=== PATIENT | male | born 1990 | race Caucasian/White ===

== ENCOUNTER 2024-10-01 20:59 | Emergency (ER) | payer OTHER, SELFPAY ==
[2024-10-01 21:00] VITALS: BP 149/69; PULSE 81; RESP 17; TEMP 36.7; O2SAT 98; BMI 36.4
--- NOTE | 2024-10-01 21:28 | ED.RN ---
per housing case manager pt does not need a drug screen.
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
== END 2024-10-01 22:39 | disposition home or self-care (01) ==
PROVIDERS: Emergency Provider Emergency Medicine; Visit Provider Emergency Medicine
DX: Z13.9 Encounter for screening, unspecified (principal); Y92.410 Unspecified street and highway as the place of occurrence of the external cause; V47.5XXA Car driver injured in collision with fixed or stationary object in traffic accident, initial encounter
CPT/HCPCS: 99282

== ENCOUNTER 2024-11-01 04:44 | Emergency (ER) | payer OTHER, SELFPAY ==
[2024-11-01 04:45] VITALS: BP 158/95; PULSE 96; RESP 18; TEMP 36.8; O2SAT 99; BMI 36.3
--- NOTE | 2024-11-01 05:10 | RAD_ITS ---
PROCEDURE: NECK FOR SOFT TISSUE REASON FOR EXAM: PAIN TECHNIQUE: AP and lateral view(s) of the soft tissues of the neck COMPARISON: None. FINDINGS: No evidence of soft tissue swelling or radiopaque foreign body. Prevertebral and epiglottis contours appear normal. RAD/Neck for Soft Tissue IMPRESSION: NEGATIVE SOFT TISSUE NECK Reading Location: [id number]
[2024-11-01] MEDS: Lidocaine 2% Viscous15 ML UDC 15 ML PO (05:30)
[2024-11-01] MEDS: Mag Hydrox/Al Hydrox/Simeth 30 ML UDC PO (05:30)
--- NOTE | 2024-11-01 06:34 | EDS_ITS ---
HPI History of Present Illness Chief Complaint: Foreign Body Informant: patient Narrative Narrative: Patient is a 34-year-old male with no reported significant past medical history. He states that over the last 1 to 2 days he has noticed irritation in the back of his throat. He states he was sleeping and it felt like he was choking on his saliva he also states it feels somewhat difficult to swallow and secondary to this comes in for evaluation [facility] Home Medications ?Medication ?Instructions ?Recorded ?Last Taken ?Type amoxicillin 875 mg tablet 875 mg PO BID 7 days #14 tab s 11/01/24 Unknown Rx prednisone 20 mg tablet 40 mg (2 x 20 mg) PO DAILY 5 days 11/01/24 Unknown Rx #10 tabs Allergy/AdvReac Type Severity Reaction Status Date / Time No Known Allergies Allergy Verified 11/01/24 04:45 Family History no significant family his Surgical History Hx of LASIK History of orthopedic surgery Social History Smoking Status: Never smoker ROS ROS ED Constitutional Constitutional ED: Denies chills or fever(s) ENT ENT ED: Reports sore throat Cardiovascular Cardiovascular: Denies chest pain Respiratory/Chest Respiratory/Chest: Denies cough or dyspnea Gastrointestinal Gastrointestinal: Denies abdominal pain, diarrhea, nausea or vomiting Genitourinary Genitourinary ED: Denies dysuria Musculoskeletal Musculoskeletal: Denies neck pain Integumentary Denies rash Neurologic Neurologic: Denies headache(s) Hematologic/Lymphatic Hematologic/Lymphatic: Denies easy bleeding or easy bruising Allergic/Immunologic Allergic/Immunologic ED: Denies mouth swelling or tongue swelling EXAM Physical Exam Const Vital Signs: 11/01/24 04:45 11/01/24 04:45 Temperature 98.2 F Temperature Source Oral Pulse Rate 96 Respiratory Rate 18 Respiratory Effort Normal Respiratory Pattern Normal Blood Pressure 158/95 H Blood Pressure Mean 116 Pulse Ox 99 Oxygen Delivery Method Room Air Positive well nourished and well developed General Appearance ED: well developed; Negative for pallor HEENT HEENT Narrative: There is erythema and swelling of the uvula consistent with uvulitis No trismus change in voice or difficulty with secretions no obvious secondary findings to suggest a peritonsillar abscess No tongue or lip swelling no oral lesions no airway edema or compromise Eyes PERRL and EOMs intact bilaterally General Eye ED: Negative for scleral icterus Neck supple Neck Narrative: No crepitance noted No pain with external manipulation of the thyroid cartilage No brawny edema in the submental space Resp normal respiratory effort and clear to auscultation bilaterally Cardio regular rate and regular rhythm Extremity normal to inspection Neuro oriented x3, CN's II-XII intact bilaterally and no sensory deficits noted Sensorium / Orientation: alert Motor Exam: strength 5/5 throughout Psych mental status grossly normal Skin no rashes or lesions noted and no wounds General Skin Exam: Negative for jaundice or pallor MDM MDM MDM Narrative Medical decision making narrative: Patient presented to the ER hypertensive otherwise with stable vitals. He reported that he is choking on his saliva. Physical exam is most consistent with uvulitis but with his report of sore throat and difficulty swallowing there is concern for epiglottitis. By physical exam he does not have findings of peritonsillar abscess. Patient also could have an atypical presentation for strep throat. Secondary to his rapid strep swab and a soft tissue neck x-ray were obtained. Patient strep swab was negative which correlates with his exam and the soft tissue neck showed no findings for free air airway obstruction or epiglottitis. Therefore this time as his exam and workup indicate this is uvu litis he can be given symptomatic medication and is otherwise safe for discharge History & Record Review Discussion w/independent historian: Patient Radiography Diagnostic Testing: Clinical Impression(s) from Imaging Studies Soft Tissue Neck X-Ray 11/01/24 05:10 IMPRESSION: NEGATIVE SOFT TISSUE NECK Reading Location: [facility] Soft tissue neck x-ray as interpreted by the emergency medicine physician reveals no obvious foreign body airway narrowing or epiglottitis edema Discharge Plan Triage Chief Complaint: Foreign Body ED Provider: Ji Peralta Dx/Rx/DC Orders Clinical Impression: Uvulitis Instructions: ED Uvulitis Prescriptions: New prednisone 20 mg tablet 40 mg PO DAILY 5 Days Qty: 10 0RF amoxicillin 875 mg tablet 875 mg PO BID 7 Days Qty: 14 0RF [facility] [Primary Care Provider] - Activity Restrictions/Additional Instructions: Your exam and workup shows that you have swelling and inflammation to your uvula. Take the steroid to reduce inflammation and swelling and also perform salt water gargles to help reduce symptoms. Take the antibiotic to account for any potential infectious process causing the irritation/swelling and return to the ER should you have any further concerns Print Language: Citizen Of [place] Disposition Disposition: Home, Self Care Discharge Date/Time: 11/01/24 06:41
[2024-11-01 06:40] VITALS: BP 139/84; PULSE 73; RESP 18; TEMP 36.8; O2SAT 97
== END 2024-11-01 06:41 | disposition home or self-care (01) ==
PROVIDERS: Emergency Provider Emergency Medicine; Visit Provider Emergency Medicine
DX: K12.2 Cellulitis and abscess of mouth (principal)
CPT/HCPCS: 70360; 87651; 99283

== ENCOUNTER → 2024-12-05 | Outpatient (CLI) | payer OTHER, SELFPAY ==
--- NOTE | 2024-12-05 09:16 | US_ITS ---
PROCEDURE: ABD LIMITED W/ ELASTOGRAPHY REASON FOR EXAM: ELEVATED LFT COMPARISON: None. TECHNIQUE: Right upper quadrant abdominal ultrasound. Fredrick ElastQ Imaging shear wave elastography for non-invasive assessment of liver tissue stiffness. Fredrick EPIQ Elite. FINDINGS: LIVER: Size: Enlarged (hepatomegaly) Length: 20 cm Echotexture: Diffusely echogenic suggesting fatty infiltration Contour: Normal Lesions: None identified Elastography: EQI Med: 8.6 kPa EQI Med Derian: 1.69 m/s IQR/Med: 15.5 %* GALLBLADDER: Normal COMMON BILE DUCT: Normal it measures 4.9 mm. PANCREAS: Normal Visualized portions of the right kidney are unremarkable. No right upper quadrant ascites. US/ABD Limited w/ Elastography IMPRESSION: MODERATE HEPATIC FIBROSIS Hepatomegaly and diffuse fatty infiltration of the liver. Reference Values: SRU <1.37 m/s (5.7kPa): No to mild fibrosis 1.37 m/s - 2.2 m/s: Moderate to severe fibrosis >2.2 m/s (15kPa): Significant fibrosis / cirrhosis METAVIR Score F2 or higher: 1.34 m/s (5.7kPa) F3 or higher: 1.55 m/s (7.3kPa) F4: 1.80 m/s (10kPa) * If the IQR/Med is >30%, the variance in the measurements is a large and the a ccuracy of the measurement may be in question. Reading Location: [place] [id number]
== END | disposition home or self-care (01) ==
PROVIDERS: Referring Provider Nurse Practitioner Family; Visit Provider Nurse Practitioner Family
DX: R94.5 Abnormal results of liver function studies (principal)
CPT/HCPCS: 76705; 76981